=== PATIENT | female | born 1995 | race African-American/Black ===

== ENCOUNTER 2016-08-16 09:49 | Emergency (ER) | payer MEDICAID ==
[~2016-08-16] VITALS: Ht 165.1 cm; Wt 66.8 kg
[~2016-08-16 09:49] MED LIST: KEFLEX250 MG PO; REGLAN10 MG PO; VENTOLIN H0.09 MG/Ac IH
[2016-08-16 10:02] VITALS: BP 109/71
--- NOTE | 2016-08-16 10:16 | NUR ---
Patient ambulated to bed 08.
--- NOTE | 2016-08-16 10:25 | NUR ---
PATIENT PRESENTS TO ED due c/O ANXIETY WITH SHARP RIGHT SIDED CHEST PAIN X1 MONTH RADIATING TO lower back pain, also noted dry few rash on left hand, also with numbness on both hands DENIES N/V/D; SKIN IS PINK/WARM/DRY; AAOX4 WITH EVEN AND STEADY GAIT; LUNGS CLEAR BL; HR EVEN AND REGULAR; PT DENIES ANY FEVER, CP, SOB, OR COUGH AT THIS TIME; PATIENT STATES PAIN OF 10/10 AT THIS TIME in both fingers; PATIENT POSITIONED FOR COMFORT; HOB ELEVATED; BEDRAILS UP X2; BED DOWN.
--- NOTE | 2016-08-16 10:39 | NUR ---
Dr. Lincoln evaluating patient at bedside.
[2016-08-16] MEDS ORDERED: MORPHINE SULFATE 2 MG/ML SYR IVP ONE (10:50)
[2016-08-16] MEDS ORDERED: NACL 0.9% 1,000 ML IV ONE (10:50)
[2016-08-16] MEDS ORDERED: ACETAMINOPHEN EXTRA STRENGTH 500 MG TAB PO ONE (10:55)
--- NOTE | 2016-08-16 11:03 | NUR ---
XRAY at bedside.
--- NOTE | 2016-08-16 11:16 | NUR ---
PT ABLE TO DRINK ONE CUP OF WATER AND ONE CUP OF APPLE JUICE, WET WASH CLOT ON FOREHEAD PT AAO, CLAIMED I FEEL MUCH BETTER, DR. BECK AWARE OF THE BP 103/64 OK TO GIVE MORPHINE
--- NOTE | 2016-08-16 12:05 | NUR ---
PT AAO, NO C/O PAIN NOTED, WET WASH CLOT ON FOREHEAD
--- NOTE | 2016-08-16 12:32 | NUR ---
DR. BECK AT BEDSIDE
[2016-08-16] MEDS ORDERED: cefTRIAXone 1,000 MG in LIDOCAINE 1% ED 2.1 ML IM ONE (12:35)
--- NOTE | 2016-08-16 13:09 | NUR ---
PT AAO, AT BEDSIDE, PT CLAIMED I FEEL BETTER, ABLE TO GO TO THE BATHROOM WITHOUT ASSISTANCE.
--- NOTE | 2016-08-16 13:25 | NUR ---
Patient discharged with v/s stable. Written and verbal after care instructions given and explained. Patient alert, oriented and verbalized understanding of instructions. Ambulatory with steady gait. All questions addressed prior to discharge. ID band removed. Patient advised to follow up with PMD. Rx of NORCO AND CIPRO given. Patient educated on indication of medication including possible reaction and side effects. Opportunity to ask questions provided and answered.ENCOURAGED FLUID INTAKE AND HAND HYGIENE AND PT AGREED WITH IT.
[2016-08-16 13:26] VITALS: BP 98/46
== END 2016-08-16 13:25 | disposition home or self-care (01) ==
LOC: MED 09:49
DX: N12 Tubulo-interstitial nephritis, not specified as acute or chronic (principal); N39.0 Urinary tract infection, site not specified; J45.909 Unspecified asthma, uncomplicated; R21 Rash and other nonspecific skin eruption; R07.89 Other chest pain
CPT/HCPCS: 36415; 71010; 80053; 81001; 81025; 83690; 85025; 87040; 87086; 96361; 96372; 96374; 99285; J0696; J2001; J2270; J7030; Q0092

== ENCOUNTER 2016-12-19 01:00 | Emergency (ER) | payer MEDICAID ==
[~2016-12-19] VITALS: Ht 165.1 cm; Wt 61.2 kg
[~2016-12-19 01:00] MED LIST changes: +ALBU0.0912 IH; -KEFLEX250 MG PO; -REGLAN10 MG PO; -VENTOLIN H0.09 MG/Ac IH
[2016-12-19 01:11] VITALS: BP 146/56
--- NOTE | 2016-12-19 01:40 | NUR ---
PT. AMBULATES TO ER BED 4
--- NOTE | 2016-12-19 01:45 | NUR ---
21Y/F PATIENT PRESENTS TO ED WITH C/O FLULIKE SYMPTOMS X 2 DAYS . PT STATES FEVER, SORETHROAT, EAR, BACK PAIN, DIZZINESS , HOT FLUSHES FOR 2-3 DAYS, SHE TOOK IBUPROFEN 3 HOURS AGO. DENIES N/V/D; SKIN IS PINK/WARM/DRY; AAOX4 WITH EVEN AND STEADY GAIT; LUNGS CLEAR BL; HR EVEN AND REGULAR; PT DENIES ANY FEVER, CP, SOB, OR COUGH AT THIS TIME; PATIENT STATES PAIN OF 8/10 AT THIS TIME; VSS; PATIENT POSITIONED FOR COMFORT; HOB ELEVATED; BEDRAILS UP X2; BED DOWN. ER MD MADE AWARE OF PT STATUS.
--- NOTE | 2016-12-19 01:50 | NUR ---
Patient being evaluated by DR. VERMA at bedside.
--- NOTE | 2016-12-19 02:08 | NUR ---
Patient discharged with v/s stable. Written and verbal after care instructions given and explained. Patient alert, oriented and verbalized understanding of instructions. Ambulatory with steady gait. All questions addressed prior to discharge. ID band removed. Patient advised to follow up with PMD. Rx of NAPROSYN 500 MG, AUGMENTIN 875 MG given. Patient educated on indication of medication including possible reaction and side effects. Opportunity to ask questions provided and answered.
[2016-12-19 02:10] VITALS: BP 135/81
== END 2016-12-19 02:08 | disposition home or self-care (01) ==
LOC: MED 01:00
DX: J02.9 Acute pharyngitis, unspecified (principal); H66.93 Otitis media, unspecified, bilateral; J45.909 Unspecified asthma, uncomplicated; R03.0 Elevated blood-pressure reading, without diagnosis of hypertension
CPT/HCPCS: 81002; 81025; 99283